=== PATIENT | female | born 1970 | race Caucasian/White ===

== ENCOUNTER 2017-03-09 08:46 | Outpatient (CLI) | payer OTHER | END 2017-03-09 08:47 | disposition home or self-care (01) | DX: G47.8 Other sleep disorders (principal); R51 Headache; R06.83 Snoring ==

== ENCOUNTER 2017-03-27 22:32 | Outpatient (CLI) | payer OTHER | END 2017-03-27 22:33 | disposition home or self-care (01) | DX: G47.8 Other sleep disorders (principal); G47.61 Periodic limb movement disorder ==

== ENCOUNTER 2017-04-06 14:14 | Outpatient (CLI) | payer OTHER | END 2017-04-06 14:15 | disposition home or self-care (01) | LOC: SC 14:14 | PROVIDERS: ATTEND Specialist | DX: R06.83 Snoring (principal) | CPT/HCPCS: 99212; 99213 ==

== ENCOUNTER 2018-07-15 08:06 | Outpatient (CLI) | payer OTHER | END 2018-07-15 08:07 | disposition home or self-care (01) | LOC: DI 08:06 | PROVIDERS: ATTEND Internal Medicine | DX: C50.912 Malignant neoplasm of unspecified site of left female breast (principal) | CPT/HCPCS: 93306 ==

== ENCOUNTER 2018-08-25 11:55 | Outpatient (CLI) | payer OTHER | END 2018-08-25 11:56 | disposition critical access hospital (66) | LOC: EMS 11:55 | PROVIDERS: ATTEND Surgery | DX: S69.91XA Unspecified injury of right wrist, hand and finger(s), initial encounter (principal); W10.1XXA Fall (on)(from) sidewalk curb, initial encounter; Y93.01 Activity, walking, marching and hiking; Y92.211 Elementary school as the place of occurrence of the external cause; Y99.0 Civilian activity done for income or pay | CPT/HCPCS: A0425; A0429 ==

== ENCOUNTER 2018-08-25 12:30 | Emergency (ER) | payer OTHER ==
--- NOTE | 2018-08-25 13:20 | XRAY Report ---
Reason: injury Procedure Date: 08/25/2018 Accession Number: [id number] / [id number] Procedure: XR - Wrist 4 View RT CPT Code: FULL RESULT: EXAM: RIGHT WRIST RADIOGRAPHY EXAM DATE: 08/25/2018 01:02 PM. CLINICAL HISTORY: Injury. Pain. COMPARISON: None. TECHNIQUE: 4 views. FINDINGS: Bones: Hairline fracture through the base of the ulnar styloid process. Acute comminuted impacted fracture involving the distal radial diaphysis, metaphysis and epiphysis, with intra-articular extension, anterior angulation at the fracture site. 10 x 5 mm cyst at the distal scaphoid. Joints: Normal. No subluxations. Soft Tissues: Marked edema. IMPRESSION: Colles' fracture. RADIA
[2018-08-25] MEDS ORDERED: HYDROmorphone 1 MG/ML CARPUJECT IM STA (13:55)
[2018-08-25] MEDS ORDERED: ONDANSETRON ODT 4 MG TABLET TL STA (13:55)
[2018-08-25] MEDS ORDERED: PROMETHAZINE 25 MG/1 ML VIAL IM STA (13:56)
[2018-08-25] MEDS ORDERED: BUPIVACAINE 0.5%-EPI 1:200000 PF 10 ML VIAL SUBQ STA (14:03)
--- NOTE | 2018-08-25 14:04 | ED Physician Documentation ---
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 No other injuries. 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 - Present Medications Home Medications: Ambulatory Orders Medication Instructions Recorded Confirmed Calcium Carbonate [Calcium] 1 tab ORAL DAILY 07/13/18 07/13/18 Cholecalciferol (Vitamin D3) 1 tab ORAL DAILY 07/13/18 07/13/18 [Vitamin D3] Cyanocobalamin (Vitamin B-12) 1 tab ORAL DAILY 07/13/18 07/13/18 [Vitamin B-12] Escitalopram [Lexapro] 1 tab ORAL DAILY 07/13/18 07/13/18 Glucosamine HCl 1 tab ORAL DAILY 07/13/18 07/13/18 Letrozole 1 tab ORAL DAILY 07/13/18 07/13/18 Hydrocodone/Acetaminophen 1 - 2 each PO Q6H PRN #30 tablet 08/25/18 [Hydrocodon-Acetaminophen 5-325] - Allergies Allergies/Adverse Reactions: Allergies Allergy/AdvReac Type Severity Reaction Status Date / Time No Known Drug Allergies Allergy Verified 07/13/18 15:29 - Social History Does the pt smoke?: No Smoking Status: Never smoker Does the pt drink ETOH?: No Does the pt have substance abuse?: No - Immunizations Immunizations are current?: Yes - POLST Patient has POLST: No PD ED PE NORMAL - Vitals Vital signs reviewed: Yes - General General: Alert and oriented X 3, Other (Tearful) - Neck Neck: Supple, no meningeal sign, No bony TTP - Extremities Extremities: Other (Right upper extremity with obvious wrist deformity dorsally. Normal neurovascular status including cap refill and sensation in all the digits. Unable to range the elbow or the wrist. She is also tender over the radial head.) - Neuro Neuro: Alert and oriented X 3, Normal speech Results - Vitals Vitals: Vital Signs - 24 hr 08/25/18 12:32 Temperature 36.6 C Heart Rate 70 Respiratory 18 Rate Blood Pressure 137/88 H O2 Saturation 100 Oxygen O2 Source Room air - Rads (name of study) R wrist Xray Radiology: EMP read contemporaneously (Dorsally angulated Colles' fracture) Procedures - Splint (location) RUE Splint applied by: Physician Type of splint: Fiberglass, Long arm, Sugar tong Other: Patient tolerated well, No complications, Neurovascular intact - Reduction Body part reduced: Right, Wrist Fracture or dislocation: Fracture Anesthesia: Hematoma block, Marcaine (enter cc) (8) Reduction aftercare: Alignment improved, Splint applied, Sling PD MEDICAL DECISION MAKING - Consults Consults: Consulted (name) (Dr. Aguilar, on-call orthopedics. Recommends hematoma block and reduction, splinting and will see in the office, plan for surgical procedure.) - Sepsis Event Vital Signs: Vital Signs - 24 hr 08/25/18 12:32 Temperature 36.6 C Heart Rate 70 Respiratory 18 Rate Blood Pressure 137/88 H O2 Saturation 100 Oxygen O2 Source Room air Departure - Departure Disposition: 01 Home, Self Care Clinical Impression: Colles' fracture of right radius Qualifiers: Encounter type: initial encounter Fracture type: closed Qualified Code(s): S52.531A - Colles' fracture of right radius, initial encounter for closed fracture Condition: Good Record reviewed to determine appropriate education?: Yes Instructions: ED Fx Forearm Radius Ulna Redu Requ Follow-Up: Woodrow Aguilar MD [Provider Admit Priv/Credential] - (Call today for appointment on Wednesday, planned surgery on Wednesday.) Prescriptions: Hydrocodone/Acetaminophen [Hydrocodon-Acetaminophen 5-325] 1 - 2 each PO Q6H PRN #30 tablet PRN Reason: pain Forms: Activity restrictions
[2018-08-25 15:12] VITALS: BP 146/91
--- NOTE | 2018-08-25 15:12 | XRAY Report ---
Reason: elbow inj Procedure Date: 08/25/2018 Accession Number: [id number] / [id number] Procedure: XR - Elbow 3 View RT CPT Code: FULL RESULT: EXAM: RIGHT ELBOW RADIOGRAPHY EXAM DATE: 08/25/2018 02:58 PM. CLINICAL HISTORY: Elbow pain after injury; fell on outstretched hand. COMPARISON: None. TECHNIQUE: 3 views. FINDINGS: Bones: Normal. No fractures or bone lesions. Joints: Normal. No effusion. No subluxation. Soft Tissues: Normal. No soft tissue swelling. IMPRESSION: No fracture or dislocation. RADIA
== END 2018-08-25 15:13 | disposition home or self-care (01) ==
LOC: ED 12:30
DX: S52.531A Colles' fracture of right radius, initial encounter for closed fracture (principal); W18.09XA Striking against other object with subsequent fall, initial encounter; Y92.480 Sidewalk as the place of occurrence of the external cause; Y92.219 Unspecified school as the place of occurrence of the external cause; Y99.0 Civilian activity done for income or pay
CPT/HCPCS: 29125; 73080; 73110; 96372; 99283; J1170; Q0162

== ENCOUNTER 2018-08-30 07:18 | Day surgery (SDC) | payer OTHER ==
[2018-08-30] MEDS ORDERED: LACTATED RINGERS 1,000 ML IV ONE ×2 (07:27→09:30)
[2018-08-30] MEDS ORDERED: ceFAZolin 2 GM/50 ML 2 GM/50 ML BAG IV ONE (08:24)
[2018-08-30] MEDS ORDERED: BUPIVACAINE 0.25% PF 30 ML VIAL ONE (08:25)
--- NOTE | 2018-08-30 08:33 | ANESTHESIA ---
Pre-Anesthesia VS, & Labs - Diagnosis R wrist fx - Procedure ORIF R wrist fx Vital Signs: Temp Pulse Resp BP Pulse Ox 37.0 C 71 16 146/81 H 94 08/30/18 07:42 08/30/18 07:42 08/30/18 07:42 08/30/18 07:42 08/30/18 07:42 Height 5 ft 9 in Weight (kg) 122 kg Body Mass Index 39.9 - NPO >8 hours - Is Patient ?: Waiver signed - Lab Results Lab results reviewed: Yes Home Medications and Allergies Home Medications: Ambulatory Orders Medication Instructions Recorded Confirmed Calcium Carbonate [Calcium] 1 tab ORAL DAILY 07/13/18 08/30/18 Cholecalciferol (Vitamin D3) 1 tab ORAL DAILY 07/13/18 08/30/18 [Vitamin D3] Cyanocobalamin (Vitamin B-12) 1 tab ORAL DAILY 07/13/18 08/30/18 [Vitamin B-12] Escitalopram [Lexapro] 1 tab ORAL DAILY 07/13/18 08/30/18 Glucosamine HCl 1 tab ORAL DAILY 07/13/18 08/30/18 Letrozole 1 tab ORAL DAILY 07/13/18 08/30/18 Hydrocodone/Acetaminophen 1 - 2 each PO Q6H PRN #30 tablet 08/25/18 08/30/18 [Hydrocodon-Acetaminophen 5-325] Calcium Carbonate [Calcium] 1 tab ORAL DAILY 07/13/18 Cholecalciferol (Vitamin D3) [Vitamin D3] 1 tab ORAL DAILY 07/13/18 Cyanocobalamin (Vitamin B-12) [Vitamin B-12] 1 tab ORAL DAILY 07/13/18 Escitalopram [Lexapro] 1 tab ORAL DAILY 07/13/18 Glucosamine HCl 1 tab ORAL DAILY 07/13/18 Letrozole 1 tab ORAL DAILY 07/13/18 Allergies/Adverse Reactions: Allergies Allergy/AdvReac Type Severity Reaction Status Date / Time No Known Drug Allergies Allergy Verified 08/30/18 07:47 Anes History & Medical History - Anesthetic History Anesthesia Complications: reports: No previous complications Family history of Anesthesia Complications: Denies Family history of Malignant Hyperthermia: Denies - Medical History Cardiovascular: reports: None Pulmonary: reports: None Gastrointestinal: reports: None Urinary: reports: None Neuro: reports: None Musculoskeletal: reports: Osteoarthritis, Chronic back pain, Other Endocrine/Autoimmune: reports: None Blood Disorders: reports: None Skin: reports: None Smoking Status: Never smoker Psychosocial: reports: Alcohol (occasional) - Surgical History General: Cholecystectomy Gynecologic: Oophrectomy, Mastectomy Exam General: Alert, Oriented x3, Cooperative Dental: WNL Mouth Opening: Greater than 4 Fingerbreadths Neck Mobility: Normal Mallampati classification: II Thyromental Distance: greater than 6 cm Respiratory: Lungs clear, Normal breath sounds, No respiratory distress Cardiovascular: Regular rate, Normal S1, Normal S2, No murmurs Neurological: Normal gait, Normal speech Mental/Cognitive Status: Alert/Oriented X3 Cognitive Status: Within normal limits Plan Anesthesia Type: General Consent for Procedure(s) Verified and Reviewed: Yes Code Status: Attempt Resuscitation ASA classification: 2-Mild systemic disease Is this case an emergency?: No
[2018-08-30] MEDS ORDERED: fentaNYL 100 MCG/2 ML VIAL IVP ONE (09:23)
[2018-08-30] MEDS ORDERED: HYDROmorphone 1 MG/ML SYRINGE IVP ONE (09:23)
[2018-08-30] MEDS ORDERED: PROPOFOL 200 MG/20 ML VIAL IVP ONE (09:23)
[2018-08-30] MEDS ORDERED: KETOROLAC 30 MG/ML VIAL IVP ONE (09:23)
[2018-08-30] MEDS ORDERED: ACETAMINOPHEN 1,000 MG/100 ML 100 ML IV ONE (09:23)
[2018-08-30] MEDS ORDERED: LIDOCAINE-MPF 2% 5 ML VIAL IM ONE (09:23)
[2018-08-30] MEDS ORDERED: DEXAMETHASONE 4 MG/ML VIAL IVP ONE (09:23)
[2018-08-30] MEDS ORDERED: MIDAZOLAM 2 MG/2 ML VIAL IVP ONE (09:23)
[2018-08-30] MEDS ORDERED: ONDANSETRON 4 MG/2 ML VIAL IVP ONE (09:23)
[2018-08-30] MEDS ORDERED: BUPIVACAINE 0.25% PF 30 ML VIAL SUBQ ONE ×2 (09:31)
--- NOTE | 2018-08-30 10:39 | OPERATIVE REPORT ---
Operative Report - General Procedure Date: 08/30/18 Planned Procedure: orif right radius Pre-Op Diagnosis: comminuted intra-articular distal radius fracture Procedure Performed: ORIF right radius Post Op Diagnosis: same - Procedure Note Primary Surgeon: brenda Anesthesia Technique: General LMA
[2018-08-30] MEDS: fentaNYL 100 MCG/2 ML VIAL ONE ×2 (10:45→10:53)
[2018-08-30] MEDS ORDERED: HYDROcod/ACETAM 5/325 MG TABLET PO PRN (10:47)
[2018-08-30] MEDS ORDERED: HYDROcod/ACETAM 5/325 MG TABLET ONE (11:24)
[2018-08-30 12:09] VITALS: BP 178/61
--- NOTE | 2018-08-30 14:52 | OPERATIVE REPORT ---
DATE OF SERVICE: 08/30/2018 Physician: Woodrow Aguilar MD PREOPERATIVE DIAGNOSIS: Right distal radius closed intraarticular comminuted fracture. POSTOPERATIVE DIAGNOSIS: Right distal radius closed intraarticular comminuted fracture. PROCEDURE PERFORMED: Open reduction, internal fixation of right distal radial fracture. OPERATING SURGEON: Woodrow Aguilar MD. ANESTHESIA: General. INDICATIONS FOR SURGERY: Patient is a 48-year-old female status post ground level fall on an outstretched wrist causing a dorsally angulated, mildly comminuted intraarticular fracture. She was seen in the emergency room, splinted, and referred for care, where she was found to have what appeared to be an unstable injury, and surgery was recommended for episcopal of anatomy and stabilization of her fracture. FINDINGS AT SURGERY: The patient's fracture was dorsally angulated with a soft tissue band trapped in the volar fracture site. There was mild comminution towards the radial side of the fracture and dorsally. The fracture reduced well, levering it into place at surgery, and fixation was good with the plate and screws. DESCRIPTION OF OPERATIVE PROCEDURE: The patient was taken to the operating room and was given a general anesthetic. She was positioned supine, a tourniquet on her right arm, her forearm and hand sterilely prepped and draped in standard fashion. Surgical timeout was held, after which a volar radial incision was made along the course of the flexor carpi radialis and dissection continued beneath this tendon sheath down to the volar aspect of the wrist, reflecting pronator quadratus ulnarward and exposing the volar radius and the fracture site with its entrapped soft tissue. The entrapped tissue was removed from the fracture site and the fracture was able to be levered up into position and reduced satisfactorily as viewed by C-arm images. A small DVR plate was placed on the radius and positioned for alignment and fixed provisionally with a radial screw and a distal pin. Once this was achieved, further screw progression was with locking screws, both distal and proximal, aiming to capture the main fracture fragments in a stable fashion and aiming to leave no screws penetrating distally. The reduction gain was good. The plate was slightly angled on its AP view, which was cosmetically or x-ray appearance not as satisfactory, but would not have bearing on the healing of the fracture. The wound was irrigated thoroughly. Closure was with interrupted Vicryl in the pronator quadratus and then the subcutaneous tissue with a Monocryl 3-0 closure of skin, followed by sterile dressings and then application of a short arm fiberglass cast, which was univalved. The patient was then taken to recovery room in stable condition. ESTIMATED BLOOD LOSS: Minimal. COMPLICATIONS: None. COUNTS: Sponge and needle counts correct. TD: 08/30/2018 11:42 MTDD
== END 2018-08-30 07:19 | disposition home or self-care (01) ==
LOC: SDS 07:18
PROVIDERS: ATTEND Orthopaedic Surgery
PROC: 0PSH04Z Reposition Right Radius with Internal Fixation Device, Open Approach (ICD-10-PCS; principal; 2018-08-30 08:30)
DX: S52.571A Other intraarticular fracture of lower end of right radius, initial encounter for closed fracture (principal); Y99.0 Civilian activity done for income or pay; F41.9 Anxiety disorder, unspecified; C50.919 Malignant neoplasm of unspecified site of unspecified female breast; Z79.811 Long term (current) use of aromatase inhibitors; Z79.899 Other long term (current) drug therapy
CPT/HCPCS: 25608; A9270; C1713; J0131; J0690; J1170; J7120

== ENCOUNTER 2019-01-25 13:00 | Emergency (ER) | payer OTHER ==
[2019-01-25 13:38] LABS: BASOPHILS % (AUTO) 0.5 %; EOSINOPHILS # (AUTO) 0.3 10^3/uL (0.0-0.7); EOSINOPHILS % (AUTO) 4.1 %; HGB - HEMOGLOBIN 12.9 g/dL (12.0-16.0); LYMPHOCYTES % (AUTO) 30.8 %; MEAN CORPUSCULAR HEMOGLOBIN 29.8 pg (27.0-31.0); MEAN CORPUSCULAR HGB CONC 34.2 g/dL (32.0-36.0); MEAN CORPUSCULAR VOLUME 87.1 fL (81.0-99.0); MEAN PLATELET VOLUME 8.7 fL (7.9-10.8); MONOCYTES # (AUTO) 0.7 10^3/uL (0.0-1.0); MONOCYTES % (AUTO) 10.9 %; NEUTROPHILS # (AUTO) 3.4 10^3/uL (1.5-6.6); NEUTROPHILS % (AUTO) 53.7 %; PLT - PLATELET COUNT 210 10^3/uL (130-450); RED BLOOD COUNT 4.34 10^6/uL (4.20-5.40); RED CELL DISTRIBUTION WIDTH 13.8 % (12.0-15.0); WHITE BLOOD COUNT 6.4 x10^3/uL (4.8-10.8)
--- NOTE | 2019-01-25 13:47 | ED Physician Documentation ---
PD HPI CHEST PAIN - Stated complaint Stated Complaint: CHEST PX - Chief complaint Chief Complaint: Cardiac - History obtained from History obtained from: Patient - History of Present Illness Timing - onset: Today (This is a 48-year-old woman with no personal history of coronary disease but her father in his early 40s from an [place]. She was doing light activity at work today and developed left-sided breast aching radiating to the back that lasted about an hour and a half that is now gone. It was not associated with shortness of breath, sweats, chills, nausea. She has not traveled recently. She denies any estrogen or hormonal use. There is no pedal edema or calf pain. No history of DVT or PE. No recent surgeries. 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, 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 - Present Medications Home Medications: Ambulatory Orders Medication Instructions Recorded Confirmed Cholecalciferol (Vitamin D3) 1 tab ORAL DAILY 07/13/18 01/25/19 [Vitamin D3] Cyanocobalamin (Vitamin B-12) 1 tab ORAL DAILY 07/13/18 01/25/19 [Vitamin B-12] Escitalopram [Lexapro] 1 tab ORAL DAILY 07/13/18 01/25/19 Glucosamine HCl 1 tab ORAL DAILY 07/13/18 01/25/19 Letrozole 1 tab ORAL DAILY 07/13/18 01/25/19 Calcium Carbonate [Calcium] 600 mg PO DAILY 01/25/19 01/25/19 - Allergies Allergies/Adverse Reactions: Allergies Allergy/AdvReac Type Severity Reaction Status Date / Time No Known Drug Allergies Allergy Verified 01/25/19 13:05 - Social History Does the pt smoke?: No Smoking Status: Never smoker Does the pt drink ETOH?: No Does the pt have substance abuse?: No - Immunizations Immunizations are current?: Yes - POLST Patient has POLST: No PD ED PE NORMAL - Vitals Vital signs reviewed: Yes - General General: Alert and oriented X 3, No acute distress - Neck Neck: Supple, no meningeal sign, No bony TTP - Cardiac Cardiac: RRR, No murmur, Other (Slight tenderness to the upper left breast using the stethoscope) - Respiratory Respiratory: No respiratory distress, Clear bilaterally - Abdomen Abdomen: Soft, Non tender - Extremities Extremities: No edema, No calf tenderness / cord - Neuro Neuro: Alert and oriented X 3, Normal speech Results - Vitals Vitals: Vital Signs - 24 hr 01/25/19 01/25/19 01/25/19 13:03 13:05 14:23 Temperature 36 C L Heart Rate 73 64 Respiratory 20 14 Rate Blood Pressure 123/83 H 133/92 H Blood Pressure 133/94 H [Right] O2 Saturation 97 98 01/25/19 14:45 Temperature 36.9 C Heart Rate 63 Respiratory 16 Rate Blood Pressure 134/91 H Blood Pressure [Right] O2 Saturation 100 Oxygen O2 Source Room air - EKG (time done) 1308 Rate: Rate (enter#) (64) Rhythm: NSR [place]: Normal Intervals: Normal HI QRS: LVH Ischemia: Normal ST segments Computer interpretation: Agree with computer - Labs Labs: Laboratory Tests 01/25/19 01/25/19 01/25/19 13:16 13:16 13:16 WBC 6.4 RBC 4.34 Hgb 12.9 Hct 37.8 MCV 87.1 MCH 29.8 MCHC 34.2 RDW 13.8 Plt Count 210 MPV 8.7 Neut # (Auto) 3.4 Lymph # (Auto) 2.0 Reeves # (Auto) 0.7 Eos # (Auto) 0.3 Baso # (Auto) 0.0 Absolute Nucleated RBC 0.00 Nucleated RBC % 0.1 Sodium 137 Potassium 3.8 Chloride 99 L Carbon Dioxide 29 Anion Gap 9.0 BUN 17 Creatinine 0.8 Estimated GFR (MDRD) 77 L Glucose 93 Calcium 9.0 Total Bilirubin 1.1 H AST 25 ALT 28 Alkaline Phosphatase 103 Troponin I < 0.04 Total Protein 7.9 Albumin 4.2 Globulin 3.7 Albumin/Globulin Ratio 1.1 Lipase 56 H 01/25/19 14:57 WBC RBC Hgb Hct MCV MCH MCHC RDW Plt Count MPV Neut # (Auto) Lymph # (Auto) Reeves # (Auto) Eos # (Auto) Baso # (Auto) Absolute Nucleated RBC Nucleated RBC % Sodium Potassium Chloride Carbon Dioxide Anion Gap BUN Creatinine Estimated GFR (MDRD) Glucose Calcium Total Bilirubin AST ALT Alkaline Phosphatase Troponin I < 0.04 Total Protein Albumin Globulin Albumin/Globulin Ratio Lipase - Rads (name of study) 1v chest Radiology: EMP read contemporaneously (Low lung volumes and possible cardiomegaly.) PD MEDICAL DECISION MAKING - ED course ED course: This is a 48-year-old woman with concerning family history but now atypical chest pain that started earlier today. Her EKG is nonischemic but does suggest may be some LVH as is her chest x-ray. Delta troponins were done in the emergency department and both were undetectable and without change. Suggest follow-up for a stress echo. Departure - Departure Disposition: Home, Self Care Clinical Impression: Chest pain Qualifiers: Chest pain type: precordial pain Qualified Code(s): R07.2 - Precordial pain Condition: Good Record reviewed to determine appropriate education?: Yes Instructions: ED Chest Pain Atypical Unkn Cause Comments: As discussed the pain is most likely musculoskeletal or of GI origin. That said please return for reevaluation for new or worsening symptoms. Your chest x-ray may be suggestive of a slightly enlarged heart. I would recommend since you need a stress test anyway to ask your doctor to order a stress echocardiogram for further evaluation.
[2019-01-25 13:48] LABS: ALBUMIN 4.2 g/dL (3.2-5.5); ALBUMIN/GLOBULIN RATIO 1.1 (1.0-2.2); BILIRUBIN,TOTAL 1.1 mg/dL (0.2-1.0); CREATININE 0.8 mg/dL (0.4-1.0); TOTAL PROTEIN 7.9 g/dL (6.7-8.2)
--- NOTE | 2019-01-25 13:55 | XRAY Report ---
Reason: chest pain Procedure Date: 01/25/2019 Accession Number: [id number] / [id number] Procedure: XR - Chest 1 View X-Ray CPT Code: 47624 FULL RESULT: EXAM: CHEST RADIOGRAPHY EXAM DATE: 01/25/2019 01:42 PM. CLINICAL HISTORY: Chest pain. COMPARISON: None. TECHNIQUE: 1 view. FINDINGS: Lungs/Pleura: Low lung volumes with no focal airspace opacity detected. No sizable pleural effusion or pneumothorax on this limited single view. Mediastinum: Apparent cardiomegaly is likely exacerbated by AP technique. Other: None. IMPRESSION: Low lung volumes with apparent cardiomegaly. RADIA
[2019-01-25 14:45] VITALS: BP 134/91
== END 2019-01-25 15:57 | disposition home or self-care (01) ==
LOC: ED 13:00
DX: R07.2 Precordial pain (principal); Z82.41 Family history of sudden cardiac death
CPT/HCPCS: 36415; 71045; 80053; 83690; 84484; 85025; 93005; 99283; 99284

== ENCOUNTER 2019-03-15 14:15 | Outpatient (CLI) | payer OTHER ==
--- NOTE | 2019-03-15 17:13 | CARDIAC PROCEDURE NOTE ---
DATE OF SERVICE: 03/15/2019 Physician: More Pena MD, [facility] INDICATIONS: Chest pain. CARDIAC RISK FACTORS: Family history of heart disease, overweight patient (270 pounds). PROCEDURE: After signing informed consent, the patient underwent a Frandy protocol treadmill stress test with Echo imaging at rest and at peak heart rate. RESTING HEART RATE: 74. Peak heart rate: 158 (91% predicted maximum heart rate for age). RESTING BLOOD PRESSURE: 130/80. Peak blood pressure: 180/70. The patient exercised for 4 minutes and 39 seconds on a Frandy protocol. She achieved a peak heart rate of 158 (98% PMHR) and 6.8 METS. The patient had shortness of breath at stage I and reported moderate shortness of breath at peak. She had no chest pain. Oxygen saturation was 93% on room air at peak exercise. Normal blood pressure response to exercise, but accelerated heart rate response to exercise. RESTING EKG: Normal sinus rhythm, inverted T wave in lead III only. EKG AT PEAK: No ischemic ST or T-wave changes by EKG criteria. SUMMARY 1. Kefk-[id number] exercise tolerance. 2. No ischemic changes by EKG criteria at an adequate level of stress with treadmill exercise. 3. Echocardiogram images reported separately. TD: 03/15/2019 16:25 MTDTrent
== END 2019-03-15 14:16 | disposition home or self-care (01) ==
LOC: DI 14:15
PROVIDERS: ATTEND Family Medicine
DX: R07.9 Chest pain, unspecified (principal); Z82.49 Family history of ischemic heart disease and other diseases of the circulatory system; E66.3 Overweight
CPT/HCPCS: 93350

== ENCOUNTER 2019-11-15 08:00 | Outpatient (CLI) | payer OTHER ==
[2019-11-15 20:45] LABS: H. PYLORIS ANTIGEN STL NEGATIVE (Negative)
== END 2019-11-15 23:59 | disposition home or self-care (01) ==
LOC: LAB.R 08:00
PROVIDERS: ATTEND Physician Assistant
DX: A04.8 Other specified bacterial intestinal infections (principal)
CPT/HCPCS: 87338

== ENCOUNTER 2020-01-02 15:48 | Outpatient (CLI) | payer OTHER ==
--- NOTE | 2020-01-03 11:33 | DEXA Report ---
Reason: LT BREAST CA Procedure Date: 01/02/2020 Accession Number: [id number] / [id number] Procedure: DEX - Dexa Spine and/or Hip CPT Code: Final Report FULL RESULT: EXAM: Dexa Spine and/or Hip DATE: 01/02/2020 4:22 PM CLINICAL HISTORY: LT BREAST CA. History of chemotherapy and tamoxifen TECHNIQUE: Dual energy x-ray absorptiometry (DXA) was performed on a [employer] System. Regions measured are the AP Spine, femoral neck, and if needed forearm. COMPARISON: 07/15/2018. In accordance with the International Society for Clinical Densitometry (ISCD) guidelines, data from previous exams may be reanalyzed using current recommendations and techniques. This is done to allow a more accurate basis for comparison with the current study. FINDINGS: The data for the lumbar spine is as follows: BMD (g/cm/cm) T-SCORE Z-SCORE REGION L1 1.059 -0.6 -1.5 L2 0.958 -2.0 -2.9 L3 1.003 -1.6 -2.5 L4 1.113 -0.7 -1.6 TOTAL 1.038 -1.2 -2.1 NOTE: All evaluable vertebrae are used for classification The data for the hip is as follows: BMD (g/cm/cm) T-SCORE Z-SCORE REGION Neck 0.949 -0.6 -0.7 TOTAL 0.934 -0.6 -1.0 NOTE: The femoral neck or total proximal femur, whichever is lowest, is used for classification. DXA RESULTS SUMMARY: Spine SCAN DATE AGE BMD CHANGE VS CHANGE VS PREVIOUS PREVIOUS % 01/02/2020 48.7 1.038 -0.026 -2.4 07/15/2018 47.2 1.064 * Denotes significant change at the 95% confidence level. Denotes dissimilar scan types or analysis methods. DXA RESULTS SUMMARY: Hip SCAN DATE AGE BMD CHANGE VS CHANGE VS PREVIOUS PREVIOUS % 01/02/2020 48.7 0.934 -0.035* -3.6* 07/15/2018 47.2 0.969 * Denotes significant change at the 95% confidence level. Denotes dissimilar scan types or analysis methods. IMPRESSION: THE WHO CLASSIFICATION BASED ON THE INTERNATIONAL REFERENCE STANDARD IS OSTEOPENIA, REFERENCE LUMBAR SPINE. THE FRACTURE RISK IS INCREASED. RECOMMENDATION: Patients with diagnosis of osteoporosis or osteopenia should have regular bone mineral density assessment. For those eligible for Medicare, routine testing is allowed once every 2 years. Testing frequency can be increased for patients who have rapidly progressing disease or for those who are receiving medical therapy to restore bone mass. COMMENT: World Health Organization (WHO) definitions for osteoporosis and osteopenia: NORMAL BMD: T-score at -1.0 or higher, fracture risk is low OSTEOPENIA BMD: T-score between -1.0 and -2.5, fracture risk is increased. OSTEOPOROSIS BMD: T-score at -2.5 or lower, fracture risk is high. National Osteoporosis Foundation recommends: 1. Obtain adequate dietary calcium (at least 1200 mg per day) and vitamin D (400-800 international units per day). 2. Participate, as appropriate, in regular weightbearing and muscle-strengthening exercise. 3. Avoid tobacco use and reduce alcohol and caffeine intake. 4. For more detailed information see the website at www.NOF.org.
== END 2020-01-02 15:49 | disposition home or self-care (01) ==
LOC: MAC.MOP 15:48
PROVIDERS: ATTEND Internal Medicine
DX: C50.912 Malignant neoplasm of unspecified site of left female breast (principal); Z78.0 Asymptomatic menopausal state; M85.88 Other specified disorders of bone density and structure, other site
CPT/HCPCS: 77080

== ENCOUNTER 2020-01-16 07:10 | Outpatient (CLI) | payer OTHER ==
--- NOTE | 2020-01-16 11:17 | Mammography Report ---
Reason: ABNORMAL MAMMOGRAM Procedure Date: 01/16/2020 Accession Number: [id number] / [id number] Procedure: KATHI - Diag Special Views Dig RT CPT Code: Final Report FULL RESULT: EXAM: Diag Special Views Dig RT DATE: 01/16/2020 8:26 AM CLINICAL HISTORY: Diagnostic examination. History of late childbearing. Personal history of left breast cancer status post lumpectomy in 2013 with chemoradiation. TECHNIQUE: (R) - Right CC, spot CC, spot MLO and ML images are obtained. Focused right breast ultrasound is performed. COMPARISON: 01/02/2020 through 12/16/2015. PARENCHYMAL PATTERN: (A) - The breast(s) demonstrate(s) scattered fibroglandular densities. FINDINGS: The previously seen right breast upper outer quadrant questionable architectural distortion is less obvious on today's exam, 5 cm from the nipple, probably benign. The upper outer quadrant of the right breast is carefully examined with focused ultrasound which reveals normal breast parenchyma without architectural distortion, mass or collection. There are no suspicious masses or calcifications. IMPRESSION: Probably Benign. BI-RADS category 3. RECOMMENDATION: (6MOS) - Recommend 6 month follow-up exam. Right breast follow-up mammogram. BI-RADS CATEGORY: (3) - Probably Benign. STANDARD QUALIFYING STATEMENTS: 1. This examination was not reviewed with the aid of Computer-Aided Detection (CAD). 2. A negative or benign imaging report should not preclude biopsy if clinically suspicious findings are present. 3. Dense breasts may obscure an underlying neoplasm. 4. This examination was reviewed with the aid of 3D breast imaging (tomosynthesis).
== END 2020-01-16 07:11 | disposition home or self-care (01) ==
LOC: DI 07:10
PROVIDERS: ATTEND Internal Medicine
DX: R92.8 Other abnormal and inconclusive findings on diagnostic imaging of breast (principal); Z85.3 Personal history of malignant neoplasm of breast; Z92.21 Personal history of antineoplastic chemotherapy; Z92.3 Personal history of irradiation
CPT/HCPCS: 76642

== ENCOUNTER 2020-07-25 08:01 | Outpatient (CLI) | payer OTHER ==
--- NOTE | 2020-07-26 09:09 | Ultrasound Report ---
LIMITED ULTRASOUND OF RIGHT BREAST: 07/25/2020 CLINICAL: Patient returns today to evaluate an architectural distortion in the right breast. Comparison is made to exams dated: 07/25/2020 mammogram, 01/16/2020 ultrasound, 01/16/2020 mammogram, mammogram, 01/02/2019 mammogram - [facility], and 02/24/2018 breast MRI - [facility]. Real-time ultrasound of the right breast upper outer quadrant was performed on the areas of interest. Lyons scale images of the real-time examination were reviewed. No discrete cystic or solid mass lesion identified in the area of mammographic abnormality. IMPRESSION: PROBABLY BENIGN There is no abnormality seen in the right breast to correspond with the mammography finding in the up per outer quadrant. A follow-up mammogram and an possible ultrasound in 6 months are recommended to demonstrate stability . This exam was interpreted at Station ID: [id number]. Electronically Signed By: Jerson Davis M.D. ddp/:07/25/2020 10:41:05 copy to: [facility] Ultrasound BI-RADS: 3 Probably benign BI-RADS CATEGORY: (3) - 3 Mammo and US [id number] 6 month follow-up LATERALITY: (B)
--- NOTE | 2020-07-26 09:09 | Mammography Report ---
UNILATERAL RIGHT DIGITAL DIAGNOSTIC MAMMOGRAM 3D/2D: 07/25/2020 CLINICAL: Patient returns today to evaluate a focal asymmetry in the right breast. Comparison is made to exams dated: 01/16/2020 mammogram, 01/02/2020 mammogram, 01/02/2019 mammogram - [facility], 04/10/2015 mammogram, 10/15/2014 mammogram, and 07/02/2014 mammogram - [facility]. There are scattered fibroglandular elements in right breast. There is irregular equal density architectural distortion with an indistinct margin in the right audrey st at 11 o'clock anterior depth. This is not significantly changed. No other significant masses or calcifications are seen in the breast. IMPRESSION: INCOMPLETE: NEEDS ADDITIONAL IMAGING EVALUATION The irregular equal density architectural distortion in the right breast is indeterminate. An ultras ound is recommended. This exam was interpreted at Station ID: [id number]. NOTE: For mammograms, a report in lay terms will be sent to the patient. Approximately 15% of breast malignancies will not be visualized mammographically. In the management of a palpable breast mass, a negative mammogram must not discourage biopsy of a clinically suspicious lesion. Electronically Signed By: Jerson Davis M.D. ddbibi/vanessa:07/25/2020 09:55:01 copy to: [facility] PETERSON BI-RADS Category 0: Incomplete 3340F PARENCHYMAL PATTERN: (A) - The breast(s) demonstrate(s) scattered fibroglandular densities. BI-RADS CATEGORY: (0) - 0 Ultrasound [id number] Immediate follow-up LATERALITY: (B)
== END 2020-07-25 08:02 | disposition home or self-care (01) ==
LOC: DI 08:01
PROVIDERS: ATTEND Internal Medicine
DX: R92.8 Other abnormal and inconclusive findings on diagnostic imaging of breast (principal); Z85.3 Personal history of malignant neoplasm of breast
CPT/HCPCS: 76642

== ENCOUNTER 2020-08-10 14:26 | Outpatient (CLI) | payer OTHER ==
[2020-08-10] MEDS ORDERED: GADOBUTROL 10 MMOL/10 ML VIAL ONE (15:09)
[2020-08-10] MEDS ORDERED: GADOBUTROL 10 MMOL/10 ML VIAL IVP ONE (16:57)
--- NOTE | 2020-08-15 13:20 | MRI Report ---
BREAST MRI OF BOTH BREASTS: 08/10/2020 CLINICAL: Routine screening. Personal history of left breast cancer. Post left lumpectomy. PROCEDURE: MR BREAST BILATERAL WITH CAD INDICATIONS: Other signs and symptoms in breast TECHNIQUE: The patient was placed prone in a dedicated breast imaging coil. Precontrast axial STIR and 3D FLASH without fat saturation sequences were obtained. Both before and after bolus injection of contrast, sequential 1-minute axial 3D FLASH with fat saturation sequences for 3 time points, with subtraction images and maximum intensity projections (MIPs) generated. Delayed sagittal FLASH images with fat s aturation were also obtained. Computer-aided detection, including computer algorithm analysis of MRI image data for lesion detectio n and characterization, pharmacokinetic analysis, with further physician review for interpretation, w as performed. COMPARISON: Comparison is made to exams dated: 07/25/2020 ultrasound, 07/25/2020 mammogram, 01/16/2020 mammogram, 01/16/2020 ultrasound, 01/02/2020 mammogram, and 01/02/2019 mammogram - [facility]. Informed consent was obtained from the patient. MRI images were obtained. Bilateral background breast enhancement is moderate. FINDINGS: Image quality: Moderate. There is minimal background parenchymal enhancement. Right breast: No suspicious enhancement or mass lesions. Specifically, there is no abnormal finding at 11:00 o'clock within the right breast to correspond with the questionable mammographic architectu ral distortion described on the initial screening mammogram dated January 02, 2020. Left breast: Postoperative changes are redemonstrated within the left breast deep to the nipple at a n anterior depth. No suspicious enhancement or mass lesions. Some skin thickening is noted within t he inner quadrants of the left breast likely secondary to radiation changes. Miscellaneous: No axillary or intramammary adenopathy. Very limited view of the mediastinum and abd omen is grossly unremarkable. IMPRESSION: NEGATIVE 1. No abnormal finding at 11:00 o'clock within the right breast to correspond with the questionable m ammographic architectural distortion described on the initial screening mammogram. Return to annual m ammogram screening schedule is recommended. 2. Negative breat MRI. This exam was interpreted at Station ID: Unknown. Electronically Signed By: Sarah collins/:08/15/2020 12:59:48 copy to: Galile[facility] Tillman ACR BI-RADS Category 1: Negative 3341F BI-RADS CATEGORY: (1) - 1 Mammogram [id number] return to screening LATERALITY: (B)
== END 2020-08-10 14:27 | disposition home or self-care (01) ==
LOC: DI 14:26
PROVIDERS: ATTEND Internal Medicine
DX: R92.8 Other abnormal and inconclusive findings on diagnostic imaging of breast (principal); Z08 Encounter for follow-up examination after completed treatment for malignant neoplasm; Z85.3 Personal history of malignant neoplasm of breast
CPT/HCPCS: 77049; A9585

== ENCOUNTER 2020-11-10 10:46 | Emergency (ER) | payer OTHER ==
[2020-11-10 11:00] VITALS: BP 114/68
[2020-11-10] MEDS ORDERED: SULFAMETH/TRIMETH DS 800/160 MG TABLET PO STA (12:36)
[2020-11-10] MEDS ORDERED: cephALEXin 250 MG CAPSULE PO STA (12:36)
--- NOTE | 2020-11-10 12:44 | ED Physician Documentation ---
History of Present Illness - Stated complaint Stated Complaint: LT EYE SWELLING - Chief complaint Chief Complaint: Wound - History obtained from History obtained from: Patient - History of Present Illness Timing: Today Pain level max: 3 Pain level now: 2 - Additonal information Additional information: Patient is a 50-year-old female who presents to the emergency department stating that her left side of her nose has been swollen for the past several days, red and warm to the touch. No drainage. She saw her doctor who recommended warm compresses. The redness has not spread. Nothing makes it better or worse. No fevers. No chills. 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, Mastectomy - Present Medications Home Medications: Ambulatory Orders Medication Instructions Recorded Confirmed Cholecalciferol (Vitamin D3) 1 tab ORAL DAILY 07/13/18 11/10/20 [Vitamin D3] Escitalopram [Lexapro] 1 tab ORAL DAILY 07/13/18 11/10/20 Letrozole 1 tab ORAL DAILY 07/13/18 11/10/20 Calcium Citrate 500 mg PO DAILY 07/31/20 11/10/20 Multivitamin [Multiple Vitamins] 1 tab PO DAILY 07/31/20 11/10/20 Cephalexin [Keflex] 500 mg PO Q6H #40 capsule 11/10/20 Sulfamethox/Trimeth 800/160 1 each PO BID #20 tablet 11/10/20 [Bactrim Ds 800/160] - Allergies Allergies/Adverse Reactions: Allergies Allergy/AdvReac Type Severity Reaction Status Date / Time No Known Drug Allergies Allergy Verified 11/10/20 11:00 - Social History Does the pt smoke?: No Smoking Status: Never smoker Does the pt drink ETOH?: No Does the pt have substance abuse?: No - Immunizations Immunizations are current?: Yes - POLST Patient has POLST: No PD ED PE NORMAL - Vitals Vital signs reviewed: Yes - General General: Alert and oriented X 3, No acute distress - HEENT HEENT: Moist mucous membranes, Other (Erythema and swelling To the left side of the nose. No drainage. Does spread onto the left cheek. No vesicles.) - Derm Derm: Warm and dry - Neuro Neuro: Alert and oriented X 3 - Psych Psych: Normal mood, Normal affect Results - Vitals Vitals: Vital Signs - 24 hr 11/10/20 10:53 Temperature 36.7 C Heart Rate 64 Respiratory 18 Rate Blood Pressure 114/68 O2 Saturation 100 Oxygen O2 Source Room air PD MEDICAL DECISION MAKING - ED course Complexity details: considered differential, d/w patient ED course: Patient with a cellulitis of the left side of the face. Extraocular movements intact. No orbital cellulitis. No evidence of shingles. We will place on antibiotics and have her follow-up with her doctor. Patient is well-appearing, nontoxic. Afebrile. Patient counseled regarding signs and symptoms for which I believe and urgent re-evaluation would be necessary. Patient with good understanding of and agreement to plan and is comfortable going home at this time This document was made in part using voice recognition software. While efforts are made to proofread this document, sound alike and grammatical errors may occur. Departure - Departure Disposition: 01 Home, Self Care Clinical Impression: Facial cellulitis Condition: Good Instructions: ED Cellulitis Facial Follow-Up: EULOGIO LOPEZ DO [Primary Care Provider] - Within 1 week Prescriptions: Sulfamethox/Trimeth 800/160 [Bactrim Ds 800/160] 1 each PO BID #20 tablet Cephalexin [Keflex] 500 mg PO Q6H #40 capsule Comments: Take all antibiotics until gone. Return if you worsen. Follow-up with your doctor later this week for a wound check. Discharge Date/Time: 11/10/20 12:51
== END 2020-11-10 12:51 | disposition home or self-care (01) ==
LOC: ED 10:46
DX: J34.0 Abscess, furuncle and carbuncle of nose (principal); L03.211 Cellulitis of face
CPT/HCPCS: 99282; 99284; A9270

== ENCOUNTER 2021-03-05 11:19 | Outpatient (CLI) | payer OTHER ==
--- NOTE | 2021-03-06 12:53 | Mammography Report ---
BILATERAL DIGITAL SCREENING MAMMOGRAM 3D/2D: 03/05/2021 CLINICAL: Routine screening. Personal history of left breast cancer. Comparison is made to exams dated: 08/10/2020 breast MRI, 07/25/2020 ultrasound, 07/25/2020 mammogram, 01/16/2020 ultrasound, 01/16/2020 mammogram, and 01/02/2020 mammogram - [facility]. Th e tissue of both breasts is heterogeneously dense. This may lower the sensitivity of mammography. There is an oval equal density asymmetry with an indistinct margin in the right breast at 9 o'clock m iddle depth. There are new grouped punctate calcifications in the left breast at 10 o'clock posterior depth. No other significant masses or calcifications are seen in either breast. IMPRESSION: INCOMPLETE: NEEDS ADDITIONAL IMAGING EVALUATION The oval equal density asymmetry in the right breast at 9 o'clock middle depth is indeterminate. Med iolateral and spot compression views as well as additional views with possible ultrasound are recomme nded. The new grouped punctate calcifications in the left breast at 10 o'clock posterior depth are indeterm inate. Mediolateral, spot magnification, and additional views are recommended. This exam was interpreted at Station ID: [id number]. NOTE: For mammograms, a report in lay terms will be sent to the patient. Approximately 15% of breast malignancies will not be visualized mammographically. In the management of a palpable breast mass, a negative mammogram must not discourage biopsy of a clinically suspicious lesion. Electronically Signed By: Jerson Davis M.D. ddbibi/vanessa:03/05/2021 13:31:06 copy to: [facility]ERSON BI-RADS Category 0: Incomplete 3340F PARENCHYMAL PATTERN: (D) - The breast(s) demonstrate(s) heterogeneously dense fibroglandular parfelyy ma. BI-RADS CATEGORY: (0) - 0 Mammo and US [id number] Immediate follow-up LATERALITY: (B)
== END 2021-03-05 11:20 | disposition home or self-care (01) ==
LOC: DI.N 11:19
DX: Z12.31 Encounter for screening mammogram for malignant neoplasm of breast (principal); Z08 Encounter for follow-up examination after completed treatment for malignant neoplasm; Z85.3 Personal history of malignant neoplasm of breast; N64.89 Other specified disorders of breast

== ENCOUNTER 2021-03-26 11:09 | Outpatient (CLI) | payer OTHER ==
--- NOTE | 2021-03-27 12:06 | Mammography Report ---
BILATERAL DIGITAL DIAGNOSTIC MAMMOGRAM 3D/2D: 03/26/2021 CLINICAL: Patient returns today to evaluate a focal asymmetry in the right breast. Patient returns fo r magnification views of microcalcifications in the left breast. Comparison is made to exams dated: 03/05/2021 mammogram, 08/10/2020 breast MRI, 07/25/2020 mammogram, mammogram, 01/02/2020 mammogram, and 01/02/2019 mammogram - [facility]. The ti ssue of both breasts is heterogeneously dense. This may lower the sensitivity of mammography. Additional imaging reveals area of interest in the right breast at 9 o'clock in the posterior depth o n prior exam is not reproduced and presumably represents superimposed breast tissue. There are new linear, branching calcifications in the left breast at 11 o'clock posterior depth. No other significant masses, calcifications, or other findings are seen in either breast. IMPRESSION: INCOMPLETE: NEEDS ADDITIONAL IMAGING EVALUATION The new linear calcifications in the left breast are suspicious of malignancy. A stereotactic biopsy is recommended. Resolution of right breast screening mammography abnormality with additional views. Ultrasound evalua tion to confirm resolution is recommended and was performed immediately following this exam. This exam was interpreted at Station ID: [id number]. NOTE: For mammograms, a report in lay terms will be sent to the patient. Approximately 15% of breast malignancies will not be visualized mammographically. In the management of a palpable breast mass, a negative mammogram must not discourage biopsy of a clinically suspicious lesion. Electronically Signed By: Adamaris maldonado/:03/26/2021 13:06:50 copy to: [facility]ERSON BI-RADS Category 0: Incomplete 3340F PARENCHYMAL PATTERN: (D) - The breast(s) demonstrate(s) heterogeneously dense fibroglandular parfelyy ma. BI-RADS CATEGORY: (0) - 0 Ultrasound [id number] Immediate follow-up LATERALITY: (B)
--- NOTE | 2021-03-27 12:06 | Ultrasound Report ---
LIMITED ULTRASOUND OF RIGHT BREAST: 03/26/2021 CLINICAL: Patient returns today to evaluate a focal asymmetry in the right breast. Comparison is made to exams dated: 03/26/2021 mammogram, 03/05/2021 mammogram, 08/10/2020 breast MRI, ultrasound, 07/25/2020 mammogram, and 01/16/2020 ultrasound - [facility]. Ultrasound of the right breast 9 o'clock region was performed. Lyons scale images of the real-time ex amination were reviewed. No significant abnormalities were seen sonographically in the right breast. Specifically, no finding to correspond to the patient's resolved screening mammographic abnormality. IMPRESSION: SUSPICIOUS OF MALIGNANCY There is no sonographic evidence of malignancy in the right breast. However, there are suspicious new calcifications in the left breast which require stereotactic biopsy . Findings and recommendations were discussed with the patient by Dr. Klein at time of exam. This exam was interpreted at Station ID: [id number]. Electronically Signed By: Adamaris maldonado/:03/26/2021 13:09:33 copy to: [facility] Ultrasound BI-RADS: 4 Suspicious for malignancy BI-RADS CATEGORY: (4) - 4 RECOMMENDATION: (ANNUAL) - Recommend routine annual screening mammography. [id number] 1 year screening LATERALITY: (B)
== END 2021-03-26 11:10 | disposition home or self-care (01) ==
LOC: DI 11:09
PROVIDERS: ATTEND Family Medicine
DX: R92.8 Other abnormal and inconclusive findings on diagnostic imaging of breast (principal)

== ENCOUNTER 2021-12-15 09:38 | Outpatient (CLI) | payer OTHER ==
--- NOTE | 2021-12-15 11:01 | DEXA Report ---
PROCEDURE: Dexa Spine and/or Hip INDICATIONS: POST MENOPAUSAL TECHNIQUE: Dual energy x-ray absorptiometry (DXA) was performed on a Ahead System. Regions measur ed are the AP Spine, femoral neck, and if needed forearm. COMPARISON: 07/15/2018, 01/02/2020. FINDINGS: Lumbar Spine: Bone Mineral Density 1.041 g/cm/cm,T score -1.2, statistically unchanged since the most recent nevaeh or study Left Hip: Bone Mineral Density 0.935 g/cm/cm,T score -0.6, statistically unchanged since the most recent prior study Left Femoral Neck: Bone Mineral Density 0.981 g/cm/cm, T score -0.4. (T score greater or equal to -1.0: NORMAL) (T score from -1.1 to -2.4: OSTEOPENIA) (T score less than or equal to -2.5 to: OSTEOPOROSIS) Impression: Osteopenia Patients with diagnosis of osteoporosis or osteopenia should have regular bone mineral density assess ment. For those eligible for Medicare, routine testing is allowed once every 2 years. Testing frequ ency can be increased for patients who have rapidly progressing disease or for those who are receivin g medical therapy to restore bone mass. Reviewed by: Andres Rea MD on 12/15/2021 11:00 AM PST Approved by: Andres Rea MD on 12/15/2021 11:00 AM PST Station ID: [id number]
== END 2021-12-15 09:39 | disposition home or self-care (01) ==
LOC: DI 09:38
PROVIDERS: ATTEND Internal Medicine
DX: Z78.0 Asymptomatic menopausal state (principal); M85.88 Other specified disorders of bone density and structure, other site

== ENCOUNTER 2024-05-01 17:29 | Emergency (ER) | payer OTHER ==
[2024-05-01 17:42] VITALS: BP 131/83; O2SAT 97
--- NOTE | 2024-05-01 17:58 | ED Physician Documentation ---
PD ANTON HEENT - Stated complaint Stated Complaint: R EAR/SHOULDER PX - Chief complaint Chief Complaint: Heent - History obtained from History obtained from: Patient - Additional information Additional information: She is intermittently had for some time intermittent shocklike pains in the right ear area. They never really lasted long and as such is never seen a physician for them. Over the last 36 hours she has this intermittent shocklike pain radiating from the ear forward and down towards the shoulder. It lasts only a second at a time and when it happens it is severe. Between episodes she is basically pain-free. It is worse with palpation around the right ear. It does not affect her hearing and is not associated with chewing. PD PAST MEDICAL HISTORY - Past Medical History Past Medical History: Yes Cardiovascular: None Respiratory: None Neuro: None Endocrine/Autoimmune: None GI: None : None HEENT: None Psych: Depression, Anxiety Musculoskeletal: Osteoarthritis, Chronic back pain, Other Derm: None - Past Surgical History Past Surgical History: Yes General: Cholecystectomy, Gastric surgery /FABRICATION LEAD: Oophrectomy, Mastectomy - Present Medications Home Medications: Ambulatory Orders Medication Instructions Recorded Confirmed Cholecalciferol (Vitamin D3) 1 tab ORAL DAILY 07/13/18 03/15/24 [Vitamin D3] Escitalopram [Lexapro] 1 tab ORAL DAILY 07/13/18 03/15/24 Letrozole 1 tab ORAL DAILY 07/13/18 03/15/24 Calcium Citrate 600 mg PO DAILY 07/31/20 03/15/24 Multivitamin [Multiple Vitamins] 1 tab PO DAILY 07/31/20 03/15/24 cephALEXin [Keflex] 500 mg PO Q6H #40 capsule 11/10/20 03/15/24 Amitriptyline [Elavil] 10 mg PO DAILY 04/09/21 03/15/24 hydrOXYzine HCL [Hydroxyzine HCl] 10 mg PO DAILY 04/09/21 03/15/24 Nitrofurantoin [Macrobid] 100 mg PO DAILY 12/08/23 03/15/24 carBAMazepine [TEGretol] 200 mg PO BID #90 tablet 05/01/24 - Allergies Allergies/Adverse Reactions: Allergies Allergy/AdvReac Type Severity Reaction Status Date / Time No Known Drug Allergies Allergy Verified 05/01/24 17:37 - Social History Does the pt smoke?: No Smoking Status: Never smoker Does the pt drink ETOH?: No Does the pt have substance abuse?: No - Immunizations Immunizations are current?: Yes - POLST Patient has POLST: No PD ED PE NORMAL - Vitals Vital signs reviewed: Yes - General General: Alert and oriented X 3, No acute distress - HEENT HEENT: PERRL, EOMI, Other (TM is normal, there is no shingles rash. No areas of tenderness about the right ear. No obvious dental issues.) - Neck Neck: Supple, no meningeal sign, No bony TTP - Neuro Neuro: Alert and oriented X 3 Results - Vitals Vitals: Vital Signs - 24 hr 05/01/24 17:38 Temperature 36.8 C Heart Rate 66 Respiratory 16 Rate Blood Pressure 131/83 H O2 Saturation 97 Oxygen O2 Source Room air PD Medical Decision Making - ED course ED course: This is most consistent with trigeminal neuralgia and will start carbamazepine pending follow-up. Departure - Departure Disposition: 01 Home, Self Care Clinical Impression: Trigeminal neuralgia of right side of face Condition: Good Record reviewed to determine appropriate education?: Yes Instructions: ED Neuralgia Trigeminal Prescriptions: carBAMazepine [TEGretol] 200 mg PO BID #90 tablet Comments: I sent your prescription electronically to [facility] in [place]. As discussed, this syndrome you are having is most consistent with something called trigeminal neuralgia. For this please follow-up with your PCM with consideration for neurology referral. If after a week or so you are not getting reasonable pain relief with the carbamazepine, you can double the dose to 2 tablets twice a day. Return for new or worsening symptoms. Forms: PCP List
[2024-05-01] MEDS: carBAMazepine 200 MG TABLET PO STA (18:09)
== END 2024-05-01 18:12 | disposition home or self-care (01) ==
LOC: ED 17:29
DX: G50.0 Trigeminal neuralgia (principal); Z79.899 Other long term (current) drug therapy
CPT/HCPCS: 99283; 99284; A9270

== ENCOUNTER 2024-06-16 13:38 | Outpatient (CLI) | payer OTHER ==
--- NOTE | 2024-06-19 09:40 | Mammography Report ---
BILATERAL DIGITAL SCREENING MAMMOGRAM 3D/2D: 06/16/2024 CLINICAL: Routine screening. Personal history of left breast cancer. Comparison is made to exams dated: 11/10/2023 breast MRI - [facility], 03/26/2021 mammogram, 021 mammogram, 07/25/2020 mammogram, 01/16/2020 mammogram, and 01/02/2020 mammogram - [facility]. Both breasts are heterogeneously dense, which may obscure small masses (category c / 51-75% glandular tissue). There are benign calcifications in both breasts. There also are benign post operative findings in th e left breast. No significant masses, calcifications, or other findings are seen in either breast. IMPRESSION: BENIGN There is no mammographic evidence of malignancy. A 1 year screening mammogram is recommended. Future imaging is recommended as follows: 11/26/2024 screening mammogram. This exam was interpreted at Station ID: [id number]. NOTE: For mammograms, a report in lay terms will be sent to the patient. Approximately 15% of breast malignancies will not be visualized mammographically. In the management of a palpable breast mass, a negative mammogram must not discourage biopsy of a clinically suspicious lesion. Electronically Signed By: Adalberto geiger/vanessa:06/16/2024 17:39:23 copy to: [facility] Tillman letter sent: No_Letter ACR BI-RADS Category 2: Benign Finding(s) 3342F PARENCHYMAL PATTERN: (D) - The breast(s) demonstrate(s) heterogeneously dense fibroglandular micki torres. BI-RADS CATEGORY: (2) - 2 RECOMMENDATION: (ANNUAL) - Recommend routine annual screening mammography. [id number] 1 year screening LATERALITY: (B)
== END 2024-06-16 13:39 | disposition home or self-care (01) ==
LOC: DI 13:38
DX: Z12.31 Encounter for screening mammogram for malignant neoplasm of breast (principal); Z85.3 Personal history of malignant neoplasm of breast; R92.333 Mammographic heterogeneous density, bilateral breasts; R92.1 Mammographic calcification found on diagnostic imaging of breast